=== PATIENT | female | born 1955 | race Caucasian/White ===

== ENCOUNTER → 2020-07-26 14:43 | Outpatient (CLI) | payer OTHER, SELFPAY ==
--- NOTE | ~2020-07-26 | MM_ITS ---
EXAMINATION: MM scrn baljinder implant BI w jeffrey HISTORY: Screening mammogram, family history of breast cancer in her mother and sister. TECHNIQUE: Craniocaudal and mediolateral oblique 3-D tomosynthesis images with implant displacement a nd synthetic 2-D images were generated. Craniocaudal and mediolateral oblique views of the breasts wi thout implant displacement were obtained using full field digital mammography. CAD analysis was submi tted and interpreted. COMPARISON: 05/16/2019, 03/02/2018, 03/05/2016 BREAST PARENCHYMAL COMPOSITION: The breasts are heterogeneously dense, which may obscure small masses . FINDINGS: There is no evidence of suspicious mass, calcification, or architectural distortion to sugg est malignancy in either breast. There has been no suspicious interval change. IMPRESSION: 1. No mammographic evidence of malignancy. 2. Recommend routine screening mammography in one year. BI-RADS Category 1: Negative Reviewed, dictated and finalized at location A. 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
== END ==
PROVIDERS: Visit Provider Obstetrics & Gynecology
DX: Z12.31 Encounter for screening mammogram for malignant neoplasm of breast (principal)
CPT/HCPCS: 77063; 77067

== ENCOUNTER → 2021-05-29 17:55 | Outpatient (CLI) | payer OTHER, SELFPAY ==
--- NOTE | ~2021-05-29 | DEXA_ITS ---
Bone Density Report Name: DANIEL MCBRIDE Age: 66 Sex: Female Ethnicity: White Date of : 1955 Indication: postmenopausal; screening for osteoporosis; height loss; prior fracture; asthma or emphysema; Referring Provider: KAREN DEY Study: Bone densitometry was performed. Exam Date: May 29, 2021 Accession number: [id number] Bone Density: Region BMD T-score Z-score Classification AP Spine (L1-L4) 1.001 -0.4 1.3 Normal Femoral Neck (Left) 0.792 -0.5 1.0 Normal Total Hip (Left) 0.963 0.2 1.4 Normal Femoral Neck (Right) 0.759 -0.8 0.7 Normal Total Hip (Right) 0.963 0.2 1.4 Normal Total Hip Mean 0.963 0.2 1.4 Normal World Health Organization criteria for BMD impression classify patients as: Normal (T-score at or above -1.0), Osteopenia (T-score between -1.0 and -2.5), or Osteoporosis (T-score at or below -2.5). 10-year Fracture Risk: FRAX not reported because: All T-scores for Spine Total, Hip Total, Femoral Neck at or above -1.0 Previous Exams: Region Exam Age BMD T-score BMD Change BMD Change Date g/cm2 vs Baseline vs Previous AP Spine(L1-L4) 05/29/2021 66 1.001 -0.4 -0.022 0.023 03/05/2016 61 0.978 -0.6 -0.045* -0.065* 02/18/2013 58 1.043 0.0 0.020 0.117* 08/12/2010 55 0.926 -1.1 -0.098* -0.098* 05/27/2006 51 1.024 -0.2 Total Hip(Left) 05/29/2021 66 0.963 0.2 -0.019 -0.012 03/05/2016 61 0.975 0.3 -0.007 -0.036* 02/18/2013 58 1.011 0.6 0.028* 0.073* 08/12/2010 55 0.938 0.0 -0.045* -0.045* 05/27/2006 51 0.982 0.3 Total Hip(Right) 05/29/2021 66 0.963 0.2 -0.023 -0.005 03/05/2016 61 0.967 0.2 -0.018 0.031* 02/18/2013 58 0.937 0.0 -0.049* 0.019 08/12/2010 55 0.918 -0.2 -0.068* -0.068* 05/27/2006 51 0.986 0.4 *Denotes significance at 95% confidence level, LSC for AP Spine = 0.022 g/cm2, LSC for Total Hip = 0.027 g/cm2 Clinical Information Provided by Patient: Has had a low trauma fracture Smokes Has used the following medications: Vitamin D, Calcium Has the following medical conditions: Asthma or Emphysema Patient maximum height was 66.25 Menopause Age: 48 Drinks caffeinated beverages Onset of menses at age 14 Number of children 3 Impre
== END ==
PROVIDERS: Visit Provider Obstetrics & Gynecology
DX: Z78.0 Asymptomatic menopausal state (principal)
CPT/HCPCS: 77080

== ENCOUNTER → 2022-01-22 15:09 | Outpatient (CLI) | payer OTHER, SELFPAY ==
--- NOTE | ~2022-01-22 | MM_ITS ---
EXAMINATION: MM scrn baljinder implant BI w jeffrey HISTORY: Screening mammogram TECHNIQUE: Craniocaudal and mediolateral oblique 3-D tomosynthesis images with implant displacement a nd synthetic 2-D images were generated. Craniocaudal and mediolateral oblique views of the breasts wi thout implant displacement were obtained using full field digital mammography. CAD analysis was submi tted and interpreted. COMPARISON: Comparison to multiple prior studies sequentially, with oldest reviewed study dated 06/2014. BREAST PARENCHYMAL COMPOSITION: There are scattered areas of fibroglandular density. FINDINGS: There is no evidence of suspicious mass, calcification, or architectural distortion to sugg est malignancy in either breast. There has been no suspicious interval change. IMPRESSION: 1. No mammographic evidence of malignancy. 2. Recommend routine screening mammography in one year. BI-RADS Category 1: Negative Reviewed, dictated and finalized at location A.
== END ==
PROVIDERS: Visit Provider Obstetrics & Gynecology
DX: Z12.31 Encounter for screening mammogram for malignant neoplasm of breast (principal)
CPT/HCPCS: 77063; 77067

== ENCOUNTER 2022-05-12 13:05 | Emergency (ER) | payer OTHER, SELFPAY ==
--- NOTE | 2022-05-12 13:06 | ED.URI ---
HPI - URI/Sore Throat General Chief Complaint: Upper Respiratory Infection Stated Complaint: cough, wheezing,sinus congestion Time Seen by Provider: 05/12/22 13:06 Source: patient and RN notes reviewed History of Present Illness HPI Narrative: Patient is a 67-year-old female who presents to urgent care with complaints of cough, wheezing and sinus congestion for 1 week. Patient states she has been using [facility] cold and flu. Denies any known fevers, nausea or vomiting. States that she has a history of bronchitis. Patient states that she has been using an inhaler that she had from the past that says seemed to help her symptoms. No other acute complaints. No acute distress noted. Patient aware of the plan of care. Some parts of this dictation were generated by voice recognition software and may contain typographical and/or grammatical inaccuracies. Related Data Home Medications Medication Instructions Recorded Confirmed B Complex 1 PO DAILY 05/12/19 03/20/22 calcium carb 300 mg-D3 800 1 tablet PO DAILY 05/12/19 05/12/22 unit-mag ox 25 mg-copier operator 0.5 mg-roman-Zn tablet (Caltrate + D3 Plus Minerals) losartan 100 mg tablet 100 mg PO DAILY 05/12/19 05/12/22 montelukast 10 mg tablet mg PO DAILY 05/12/19 03/20/22 simvastatin 80 mg tablet 80 mg PO DAILY 05/12/19 05/12/22 hydrochlorothiazide 25 mg tablet 25 mg PO DAILY 03/01/20 05/12/22 Lactobacillus rhamnosus GG 10 1 cap PO DAILY 03/14/21 05/12/22 billion cell capsule (Culturelle) metoprolol succinate 25 mg 25 mg PO DAILY 03/14/21 05/12/22 tablet,extended release 24 hr ubiqunol 1 squirt .Route DAILY 03/20/22 05/12/22 Allergies Allergy/AdvReac Type Severity Reaction Status Date / Time Sulfa (Sulfonamide Allergy Unknown Rash Verified 05/12/22 13:23 Antibiotics) Review of Systems Review of Systems: CONSTITUTIONAL: Denies fever, chills, or sweats. EYES: Denies visual changes, redness, or discharge. ENT: Reports rhinorrhea, sinus congestion and postnasal drainage CARDIOVASCULAR: Denies chest pain, palpitations, or edema. RESPIRATORY: Reports of cough and wheezing GASTROINTESTINAL: Denies abdominal pain, nausea, vomiting, or diarrhea. GENITOURINARY: Denies dysuria or hematuria. SKIN: Denies rash or itching. MUSCULOSKELETAL: Denies back pain, joint pain, or myalgia. NEUROLOGIC: Denies headache, numbness, or weakness. All other systems reviewed are negative, except as documented in HPI. [facility] Past Medical History Medical History Arthritis GERD (gastroesophageal reflux disease) Hemorrhoids Hypercholesteremia Hypertension Ovarian cyst Thyroid goiter Surgical History Surgical History H/O exploratory laparotomy History of bilateral oophorectomy History of breast lump removal History of tubal ligation Hx of tonsillectomy Previous section Family History Family History Sibling Family history of blood dyscrasia Hypertension Family history of elevated blood lipids Family history of malignant neoplasm of breast in first degree relative Father Hypertension Family history of elevated blood lipids, Onset Age: 77 Patient's father is Grandparent Carcinoma of colon, Onset Age: 75 Family history of malignant neoplasm of breast, Onset Age: 96 Mother Family history of malignant neoplasm of breast in first degree relative, Onset Age: 63 Patient's mother is Other Cerebrovascular accident Diabetes mellitus Family history of coronary artery disease Social History Social History Smoking status: Light tobacco smoker Tobacco type: cigarettes Second hand tobacco smoke exposure: No Alcohol intake: current Comments At the time of my signature, I reviewed and agre
[2022-05-12 13:20] VITALS: BP 110/61; PULSE 84; RESP 16; TEMP 36.8; O2SAT 100
== END 2022-05-12 13:49 | disposition home or self-care (01) ==
PROVIDERS: Emergency Provider Nurse Practitioner Family
DX: J40 Bronchitis, not specified as acute or chronic (principal); E78.00 Pure hypercholesterolemia, unspecified; E04.9 Nontoxic goiter, unspecified; Z90.722 Acquired absence of ovaries, bilateral; M19.90 Unspecified osteoarthritis, unspecified site; F17.210 Nicotine dependence, cigarettes, uncomplicated
CPT/HCPCS: 99213; G0463

== ENCOUNTER → 2023-07-02 13:26 | Outpatient (CLI) | payer OTHER, SELFPAY ==
--- NOTE | ~2023-07-02 | MM_ITS ---
EXAMINATION: MM scrn baljinder implant BI w jeffrey HISTORY: Screening mammogram, family history of breast cancer in her mother and sister. TECHNIQUE: Craniocaudal and mediolateral oblique 3-D tomosynthesis images with implant displacement a nd synthetic 2-D images were generated. Craniocaudal and mediolateral oblique views of the breasts wi thout implant displacement were obtained using full field digital mammography. CAD analysis was submi tted and interpreted. COMPARISON: 01/22/2022, 07/26/2020, 05/16/2019 BREAST PARENCHYMAL COMPOSITION: There are scattered areas of fibroglandular density. FINDINGS: There is no evidence of suspicious mass, calcification, or architectural distortion to sugg est malignancy in either breast. There has been no suspicious interval change. IMPRESSION: 1. No mammographic evidence of malignancy. 2. Recommend routine screening mammography in one year. BI-RADS Category 1: Negative Reviewed, dictated and finalized at location A. 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
== END ==
PROVIDERS: Visit Provider Obstetrics & Gynecology
DX: Z12.31 Encounter for screening mammogram for malignant neoplasm of breast (principal)
CPT/HCPCS: 77063; 77067

== ENCOUNTER 2023-10-12 14:07 | Emergency (ER) | payer OTHER, SELFPAY ==
[2023-10-12 14:14] VITALS: BP 123/77; PULSE 60; RESP 20; TEMP 36.7; O2SAT 100
--- NOTE | 2023-10-12 14:32 | ED.URI ---
HPI - URI/Sore Throat General Chief Complaint: Upper Respiratory Infection Stated Complaint: Sore Throat,Head and Chest Congestoin,Diarrhea Time Seen by Provider: 10/12/23 14:24 Source: patient and RN notes reviewed Mode of arrival: ambulatory Limitations: no limitations History of Present Illness HPI Narrative: Patient presents today with a 1+ week history of nasal congestion, chest congestion, cough, fatigue. Reports sore throat initially, but this has since resolved. States she had a few episodes of diarrhea today. Denies shortness of breath or fever. She has tried some Mucinex and Tylenol with mild relief. Patient states she also has a rescue inhaler but has not had to use it much. No history of asthma or COPD, but states she had some bronchitis issues a few years ago after a course of Influenza. Patient smokes 4 cigarettes per day Related Data Home Medications Medication Instructions Recorded Confirmed B Complex 1 PO DAILY 05/12/19 04/14/23 calcium carb 300 mg-D3 20 mcg-mag 1 tablet PO DAILY 05/12/19 10/12/23 ox 25 mg-helicopter mechanic 0.5 am-[id number]-[id number] tablet (Caltrate-D3 Plus Minerals) losartan 100 mg tablet 100 mg PO DAILY 05/12/19 10/12/23 montelukast 10 mg tablet 10 mg PO DAILY 05/12/19 10/12/23 simvastatin 80 mg tablet 80 mg PO DAILY 05/12/19 10/12/23 hydrochlorothiazide 25 mg tablet 25 mg PO DAILY 03/01/20 10/12/23 metoprolol succinate 25 mg 25 mg PO DAILY 03/14/21 10/12/23 tablet,extended release 24 hr ubiqunol 1 squirt .Route DAILY 03/20/22 10/12/23 cetirizine 10 mg tablet (Zyrtec) 10 mg PO DAILY 10/12/23 10/12/23 Allergies Allergy/AdvReac Type Severity Reaction Status Date / Time Sulfa (Sulfonamide Allergy Unknown Rash Verified 10/12/23 14:16 Antibiotics) Review of Systems Review of Systems: CONSTITUTIONAL: Denies body aches, fever, chills, or sweats.+ fatigue EYES: Denies visual changes, redness, or discharge. ENT: Denies rhinorrhea, or otalgia.+ congestion, sore throat CARDIOVASCULAR: Denies chest pain, palpitations, or edema. RESPIRATORY: Denies dyspnea.+ cough GASTROINTESTINAL: Denies abdominal pain, nausea, vomiting. + diarrhea GENITOURINARY: Denies dysuria or hematuria. SKIN: Denies rash, itching, or wounds. MUSCULOSKELETAL: Denies back pain, joint pain, or myalgia. NEUROLOGIC: Denies headache, numbness, tingling, or weakness. PSYCH: Denies depression or anxiety. [facility] Past Medical History Medical History Arthritis GERD (gastroesophageal reflux disease) Hemorrhoids Hypercholesteremia Hypertension Ovarian cyst Thyroid goiter Surgical History Surgical History H/O exploratory laparotomy History of bilateral oophorectomy History of breast lump removal History of tubal ligation Hx of tonsillectomy Previous section Family History Family History Sibling Family history of blood dyscrasia Hypertension Family history of elevated blood lipids Family history of malignant neoplasm of breast in first degree relative Father Hypertension Family history of elevated blood lipids, Onset Age: 77 Patient's father is Grandparent Carcinoma of colon, Onset Age: 75 Family history of malignant neoplasm of breast, Onset Age: 96 Mother Family history of malignant neoplasm of breast in first degree relative, Onset Age: 63 Patient's mother is Other Cerebrovascular accident Diabetes mellitus Family history of coronary artery disease Social History Social History Smoking status: Light tobacco smoker Tobacco type: cigarettes Second hand tobacco smoke exposure: No Alcohol intake: current Substance use: never Lack of Transportation: No Lack of Food: Never True Current Housi
== END 2023-10-12 14:44 | disposition home or self-care (01) ==
PROVIDERS: Emergency Provider Nurse Practitioner
DX: J40 Bronchitis, not specified as acute or chronic (principal); J01.00 Acute maxillary sinusitis, unspecified; F17.210 Nicotine dependence, cigarettes, uncomplicated; M19.90 Unspecified osteoarthritis, unspecified site; K21.9 Gastro-esophageal reflux disease without esophagitis; E78.00 Pure hypercholesterolemia, unspecified; I10 Essential (primary) hypertension; E04.9 Nontoxic goiter, unspecified
CPT/HCPCS: 99213; G0463

== ENCOUNTER 2024-11-16 10:24 | Outpatient (CLI) | payer OTHER, SELFPAY ==
--- NOTE | ~2024-11-16 | MM_ITS ---
EXAMINATION: MM scrn baljinder implant BI w jeffrey HISTORY: Screening. TECHNIQUE: Craniocaudal and mediolateral oblique 3-D tomosynthesis images with implant displacement a nd synthetic 2-D images were generated. Craniocaudal and mediolateral oblique views of the breasts wi thout implant displacement were obtained using full field digital mammography. CAD analysis was submi tted and interpreted. COMPARISON: Comparison to multiple prior studies sequentially, with oldest reviewed study dated 03/02. BREAST PARENCHYMAL COMPOSITION: Not dense: There are scattered areas of fibroglandular density. FINDINGS: There is no evidence of suspicious mass, calcification, or architectural distortion to sugg est malignancy in either breast. There has been no suspicious interval change. IMPRESSION: 1. No mammographic evidence of malignancy. 2. Recommend routine screening mammography in one year. BI-RADS Category 1: Negative Reviewed, dictated and finalized at location A.
== END 2024-11-16 10:25 | disposition home or self-care (01) ==
LOC: MICIMG 10:27
PROVIDERS: Visit Provider Obstetrics & Gynecology
DX: Z12.31 Encounter for screening mammogram for malignant neoplasm of breast (principal)
CPT/HCPCS: 77063; 77067